=== PATIENT | female | born 1955 | race Caucasian/White ===

== ENCOUNTER → 2021-01-30 | Outpatient (CLI) | payer OTHER ==
[~2021-01-30] MED LIST: MELO7.5T29 PO; MULT-245 PO; PRAM0.255 PO
--- NOTE | 2021-01-30 13:12 | PDOC1 ---
INITIAL PAIN CONSULT DATE OF SERVICE: DOS: DATE: 01/30/21 TIME: 13:05 CHIEF COMPLAINT: Chief Complaint: Low back and bilateral lower extremity pain HISTORY OF PRESENT ILLNESS: 65-year-old female presents history of pain low back bilateral lower extremities 5 months after injury at work she was lifting boxes at her job and had significant pain in the low back and the legs. Patient reports that she is still working but is very difficult for her to do so because of the pain in the low back and the legs patient reports is worse with standing walking changing positions sitting for more than 15 to 20 minutes exacerbates the pain she has had physical therapy as well as doing exercise and is currently doing the exercises both of which were helpful but only minimally patient reports it wakes her from sleep at night least once or twice does not affect her bowel bladder control does affect her ability to walk fairly significantly with ambulation especially with carrying any items when she is walking. Patient reports pain is constant sharp throbbing can be stabbing and shooting in the low back and into the bilateral lower extremities mostly the posterior gluteus posterior thighs. Patient rates her disability rating 0-10 10 being the worst 8 with possibilities recreation social activity occupation 7 with self-care and 8 with life support activities. Patient have MRI scan lumbar spine dated January 04, 2021 showing multilevel degenerative changes and bulges largest of which is L2-3 and L5-S1 with diffuse bulging osteophyte complex at L5-S1 and degenerative changes resulting in moderate left foraminal narrowing and mild to moderate right foraminal narrowing. Patient reports no loss of motor function but significant fatigability of both lower extremities with standing and walking especially. Patient has been taking [id number] analgesics Motrin as well as Tylenol with minimal decrease also taking meloxicam with minimal decrease. PAST MEDICAL HISTORY: PMH: Arthritis, hearing loss, restless leg syndrome PREVIOUS SURGERIES: Past Surgical Hx: Cholecystectomy, total abdominal hysterectomy CURRENT MEDICATIONS: Current Meds: Active Scripts Medications Dose Route/Sig Max Daily Dose Days Date Category Meloxicam 7.5 Mg Tablet 7.5 Mg PO DAILY 01/30/21 Reported Mirapex (Pramipexole Di-Hcl) 0.25 Mg Tablet 0.5 Mg PO DAILY 01/30/21 Reported Multi Vitamin Daily (Multivitamin) 1 Each Tablet 1 Tab PO DAILY 30 01/30/21 Reported ALLERGIES; Allergies: Coded Allergies: Iodinated Contrast Media (Verified Allergy, Severe, Shortness of Air, 01/30/21) rash codeine (Verified Allergy, Intermediate, Unknown, 01/30/21) FAMILY HISTORY: Family Hx: No major medical problems or conditions that she is aware of. 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 REVIEW OF SYSTEMS: ROS: Positive for those items mentioned in history of present illness, all systems are reviewed, otherwise negative ,and are complete full and well-documented on patient's chart. PHYSICAL EXAM: VS: Blood pressure is 146/80 pulse 72 respirations 16 temperature 97.7 F height is 5 feet 8 inches weight is 216 pounds PE: PHYSICAL EXAMINATION: GENERAL: The patient is awake, alert, oriented, appropriate, very pleasant demeanor HEENT: Shows normocephalic, atraumatic. Extraocular movements are intact and symmetrical. Oral cavity: Mucous membranes moist and pink. Dentition is intact. NECK: Shows anterior throat supple without palpable lymphadenopathy noted. Swallow reflex symmetrical. CHEST: Shows normal on inspection. Breath sounds are clear bilaterally, distant but no rales rhonchi wheezes auscultated. HEART: Shows S1, S2 clear. No murmurs auscultated. ABDOMEN: Soft, nontender, nondistended, obese. No palpable organomegaly is noted. No rebound or guarding demonstrated. BACK: Shows spine grossly in the midline. Normal-appearing cervical lordotic curvature. There is mildly increased thoracic kyphosis, some flattening of the lumbar lordotic curvature. Lumbar paraspinous muscles show symmetrical on inspection, on palpation shows some moderate tenderness diffusely throughout the upper, middle and lower distribution of the paraspinous muscles bilaterally and also into the lower thoracic paraspinous musculature, firm and tender, but without specific trigger points, without radiation of pain. The patient has good rotational motion of the lumbar spine, both laterally as well as extension and flexion without significant difficulty. No tenderness over the spinous processes, sacrum or sacroiliac regions. EXTREMITIES: Lower extremities show deep tendon reflexes 2+ in the patellar and tendo calcaneus tendons. Motor exam is 5 on a scale of 5 with right dorsiflexion, extension and 4/5 on the left. Peripheral pulses are 1+ posterior tibial. No peripheral edema is noted bilaterally. Lower extremities are warm and dry to touch, equal in color and appearance. Straight leg raise noted to be negative on the right, left side is positive at approximately 40 degrees decreased with knee flexion. Gaenslen's and Sunny's maneuvers are negative bilaterally as well. The patient is able to stand, stand her toes without significant difficulty or loss of balance walks with a normal-appearing gait not use any assistive devices to ambulate. SKIN: Shows warm and dry, good turgor. No edema. No sores, rashes or bruising throughout. IMPRESSION: Impression: 65-year-old female with history of injury at work September 2020 with resultant pain low back and bilateral lower extremities, in a radicular fashion following L5-S1 dermatomal distribution. MRI scan lumbar spine as noted Arthritis Restless leg syndrome Plan: Options were discussed with patient including continued physical therapies medical management and interventional techniques. This patient has done physical therapies and is currently doing oral analgesic therapy she would like to interventional techniques. We discussed a lumbar epidural steroid injections description as well as anatomical models to describe the procedure. Patient will wait for preauthorization with her insurance provider, once obtained we will plan on a translaminar L5-S1 level lumbar epidural steroid injection. The meantime patient continue with stretching strength exercises on her own as well as oral analgesics as currently. ROM MOE MD January 30, 2021 13:12
== END | disposition home or self-care (01) ==
LOC: PNCL 08:16
PROVIDERS: ATTEND Anesthesiology
DX: M54.5 Low back pain (principal); M19.90 Unspecified osteoarthritis, unspecified site; G25.81 Restless legs syndrome; M25.78 Osteophyte, vertebrae; Z90.49 Acquired absence of other specified parts of digestive tract; Z90.710 Acquired absence of both cervix and uterus; Z88.5 Allergy status to narcotic agent; Z91.041 Radiographic dye allergy status; Z79.899 Other long term (current) drug therapy
CPT/HCPCS: 99214; G0463

== ENCOUNTER → 2021-02-13 | Outpatient (CLI) | payer OTHER ==
[~2021-02-13] MED LIST changes: +LINZESS145 MCG PO; +methylPREDNISolone ACETATE 40 MG/ML VIAL. ONE; +methylPREDNISolone ACETATE 80 MG/ML VIAL. ONE
--- NOTE | 2021-02-13 08:42 | PDOC ---
Progress Note - Pain Clinic Date of Service: DOS: DATE: 02/13/21 TIME: 08:40 Diagnosis: Dx: Lumbar radiculopathy with lumbar degenerative disc disease History or Present Illness: HPI: 65-year-old female returns follow-up status post initial evaluation and preauthorization for lumbar epidural steroid injection. Patient reports she still has significant pain low back bilateral lower extremities posterior gluteus posterior thigh posterior calf right greater than left some weakness as well with walking in both legs patient reports that sharp and tight burning cramping stabbing sometimes throbbing in the low back shooting the bilateral lower extremities patient reports her pain is a 9 on scale 10 at all times worst least and average over the past week and a 9 today patient reports no new motor or sensory deficits no new bowel or bladder incontinence still significant pain again worse with walking standing better with sitting or laying down. Physical Exam: VS: Blood pressure is 132/73 pulse 74 respirations 16 temperature 98.0 F weight is 211 pounds PE: PHYSICAL EXAMINATION: GENERAL: The patient is awake, alert, oriented, appropriate, very pleasant demeanor HEENT: Shows normocephalic, atraumatic. Extraocular movements are intact and symmetrical. Oral cavity: Mucous membranes moist and pink. Dentition is intact. NECK: Shows anterior throat supple without palpable lymphadenopathy noted. Swallow reflex symmetrical. CHEST: Shows normal on inspection. Breath sounds are clear bilaterally, no rales or rhonchi. HEART: Shows S1, S2 clear. No murmurs auscultated. ABDOMEN: Soft, nontender, nondistended, obese. No palpable organomegaly is noted. BACK: Shows spine grossly in the midline. Normal-appearing cervical lordotic curvature. There is slightly increased thoracic kyphosis, some minor flattening of the lumbar lordotic curvature. Lumbar paraspinous muscles show symmetrical on inspection, on palpation shows some moderate tenderness diffusely throughout the upper, middle and lower distribution of the paraspinous muscles but without specific trigger points, without radiation of pain. The patient has good rotational motion of the lumbar spine, both laterally as well as extension and flexion without significant difficulty. EXTREMITIES: Lower extremities show deep tendon reflexes 2+ in the patellar and tendo calcaneus tendons. Motor exam is 5 on a scale of 5 with right dorsiflexion, extension, quadriceps and hamstring flexion and 4/5 on the left. Peripheral pulses are 1+ posterior tibial. No peripheral edema is noted bilaterally. Lower extremities are warm and dry to touch, equal in color and appearance. SKIN: Shows warm and dry, good turgor. No edema. No sores, rashes or bruising throughout. Procedure: Procedure: Options were discussed with the patient. Patient chart was reviewed as her current medication regimen updated current review of systems updated today as well. We will proceed with a first in the series lumbar epidural steroid injec tion today with fluoroscopic guidance. Risks were discussed including but not limited to: Bleeding, infection, possibility of epidural hematoma and subsequent neurological compromise, dural puncture, headaches, spinal cord and/or nerve damage, side effects of steroid medication, and poor results regarding pain control. Patient understands and wished to proceed. Patient will return to the clinic in approximately 2 weeks for follow-up, was counseled as to return appointment activity level and side effects to be aware of. Medication Injected: Med Injected: Procedure is lumbar epidural steroid injection under local anesthetic using sterile prep and drape at the L5-S1 level using C-arm fluoroscopic guidance in both AP and lateral views medications injected is 120 mg Depo-Medrol +10mL preservative-free normal saline and 2 mL contrast- condition at discharge is stable patient tolerated procedure well had no complications. Condition at Discharge: Condition at Discharge: Condition at discharge is stable, patient tolerated the procedure well and had no complications. ROM MOE MD February 13, 2021 08:42
--- NOTE | 2021-02-13 08:43 | PDOC4 ---
PROCEDURE Procedure Patient was consented for lumbar epidural steroid injection. Risks were dis cussed including but not limited to: Bleeding, infection, possibility of epidural hematoma and subsequent neurological compromise, dural puncture, headaches, spinal cord and/or nerve damage, side effects of steroid medication, and poor results regarding pain control. Patient understands and wished to proceed. Procedure is lumbar epidural steroid injection under local anesthetic using sterile prep and drape at the L5-S1 level using C-arm fluoroscopic guidance in both AP and lateral views medications injected is 120 mg Depo-Medrol +10mL preservative-free normal saline and 2 mL contrast- condition at discharge is stable patient tolerated procedure well had no complications. ROM MOE MD February 13, 2021 08:43
== END | disposition home or self-care (01) ==
LOC: PNCL 07:55
PROVIDERS: ATTEND Anesthesiology
DX: M51.16 Intervertebral disc disorders with radiculopathy, lumbar region (principal); Z79.899 Other long term (current) drug therapy; Z88.5 Allergy status to narcotic agent; Z91.041 Radiographic dye allergy status
CPT/HCPCS: 62323; J1030; J1040

== ENCOUNTER → 2021-02-27 | Outpatient (CLI) | payer OTHER ==
[~2021-02-27] MED LIST changes: +MELO15TA23 PO; -methylPREDNISolone ACETATE 40 MG/ML VIAL. ONE; -methylPREDNISolone ACETATE 80 MG/ML VIAL. ONE
--- NOTE | 2021-02-27 08:25 | PDOC ---
Progress Note - Pain Clinic Date of Service: DOS: DATE: 02/27/21 TIME: 08:20 Diagnosis: Dx: Lumbar radiculopathy with lumbar degenerative disc disease History or Present Illness: HPI: 65-year-old female returns for follow-up status post lumbar epidural steroid action x1. Patient reports about 60% improvement initially in the low back and bilateral lower extremity pain. Patient reports the pain began to return and then after about 2 weeks and is becoming close to baseline but not quite to that level yet. Patient reports pain across the low back bilaterally radiating to bilateral lower extremities in the posterior gluteus posterior thigh posterior calf and into the feet occasionally with extended walking standing changing positions. Patient reports is a 9 on scale 10 is worse over the past week 7 on average 7 at its least and is a 7 today patient reports that sharp and tight stabbing in the low back radiating shooting into the lower extremities. Patient reports difficulty with sleeping although initially she was doing much better for the first 2 weeks with distance walking doing household activities work activities sitting for longer periods at work with greater ease and comfort but now the pain is returning especially with walking and standing and weightbearing. Patient reports no new motor or sensory deficits no new bowel or bladder incontinence. Patient describes the pain in the low back and it is following an L5-S1 dermatomal distribution bilaterally as it was previously. Physical Exam: VS: Blood pressure is 120/74 pulse 78 respirations 16 temperature 97.9 F weight is 214 pounds PE: PHYSICAL EXAMINATION: GENERAL: The patient is awake, alert, oriented, appropriate, very pleasant in demeanor HEENT: Shows normocephalic, atraumatic. Extraocular movements are intact and symmetrical. NECK: Shows anterior throat supple without palpable lymphadenopathy noted. Swallow reflex symmetrical. CHEST: Shows normal on inspection. Breath sounds are clear bilaterally. For HEART: Shows S1, S2 clear. No murmurs auscultated. ABDOMEN: Soft, nontender, nondistended. No palpable organomegaly is noted. BACK: Shows spine grossly in the midline. Normal-appearing cervical lordotic curvature. There is slightly increased thoracic kyphosis, some minor flattening of the lumbar lordotic curvature. Lumbar paraspinous muscles show symmetrical on inspection, on palpation shows some moderate tenderness diffusely throughout the upper, middle and lower distribution of the paraspinous muscles, but without specific trigger points, without radiation of pain. The patient has good rotational motion of the lumbar spine, both laterally as well as extension and flexion without significant difficulty. EXTREMITIES: Lower extremities show deep tendon reflexes 2 in the patellar and tendo calcaneus tendons. Motor exam is 5 on a scale of 5 with right dorsiflexion, extension, quadriceps and hamstring flexion and 4/5 on the left. Peripheral pulses are 1+ posterior tibial. No peripheral edema is noted bilat erally. Lower extremities are warm and dry. Patient continues to have a positive straight leg raise on the left at approximate 45 degrees decreased with knee flexion, right side is negative. SKIN: Shows warm and dry, good turgor. No edema. No sores, rashes or bruising throughout. Procedure: Procedure: Options were discussed with the patient. Patient's old chart was reviewed as her current medication regimen updated current review of systems updated today as well. We will preauthorize patient for a second lumbar epidural steroid injection she did very well after the first 1 about 60% improvement with pain returning now in a radicular fashion following an L5-S1 dermatomal distribution bilaterally left greater than right again with positive straight leg raise on the left and significant pain and fatigue weakness with standing and ambulating more on the left than the right but present bilaterally. Once authorization is obtained we will plan on a translaminar approach L5-S1 lumbar epidural steroid injection. Medication Injected: Med Injected: None Condition at Discharge: Condition at Discharge: Condition at discharge stable. ROM MOE MD Feb 27, 2021 08:25
== END | disposition home or self-care (01) ==
LOC: PNCL 07:59
PROVIDERS: ATTEND Anesthesiology
DX: M51.16 Intervertebral disc disorders with radiculopathy, lumbar region (principal); Z79.899 Other long term (current) drug therapy; Z91.041 Radiographic dye allergy status; Z88.5 Allergy status to narcotic agent
CPT/HCPCS: 99212; G0463

== ENCOUNTER → 2021-03-13 | Outpatient (CLI) | payer OTHER, MEDICARE ==
[~2021-03-13] MED LIST changes: +IOHEXOL 180 MG/ML 10 ML VIAL. ONE; +methylPREDNISolone ACETATE 40 MG/ML VIAL. ONE; +methylPREDNISolone ACETATE 80 MG/ML VIAL. ONE
--- NOTE | 2021-03-13 08:52 | PDOC ---
Progress Note - Pain Clinic Date of Service: DOS: DATE: 03/13/21 TIME: 08:49 Diagnosis: Dx: Lumbar radiculopathy with lumbar degenerative disc disease History or Present Illness: HPI: 65-year-old female returns for follow-up status post lumbar epidural steroid injection x1. Patient did very well for the first injection about 60% improvement in her pain was returning in the low back and bilateral lower extremities posterior gluteus posterior thighs posterior calves patient is waiting for preauthorization with her insurance provider is obtained that now would like to proceed with second injection today. Patient reports he was doing much better distance walking doing household activities travel with greater ease and comfort sleeping better at night is beginning with sleep about once every 3 hours or so patient rates her pain a 9 on scale 10 is worst average and 8 at its least is a 9 today patient describes sharp and shooting across the low back burning and stabbing in the back shooting into the lower extremities on and off in intensity. Patient reports no new motor or sensory deficits no new bowel or bladder incontinence. Physical Exam: VS: Blood pressure is 138/85 pulse 72 respirations 16 temperature 98.0 F weight is 213 pounds PE: PHYSICAL EXAMINATION: GENERAL: The patient is awake, alert, oriented, appropriate, very pleasant demeanor HEENT: Shows normocephalic, atraumatic. Extraocular movements are intact and symmetrical. Oral cavity: Mucous membranes moist and pink. Dentition is intact. NECK: Shows anterior throat supple without palpable lymphadenopathy noted. Swallow reflex symmetrical. CHEST: Shows normal on inspection. Breath sounds are clear bilaterally. HEART: Shows S1, S2 clear. No murmurs auscultated. ABDOMEN: Soft, nontender, nondistended, obese. BACK: Shows spine grossly in the midline. Normal-appearing cervical lordotic curvature. There is slightly increased thoracic kyphosis, some minor flattening of the lumbar lordotic curvature. Lumbar paraspinous muscles show symmetrical on inspection, on palpation shows some moderate tenderness diffusely throughout the upper, middle and lower distribution of the paraspinous muscles, but without specific trigger points, without radiation of pain. The patient has good rotational motion of the lumbar spine, both laterally as well as extension and flexion without significant difficulty. EXTREMITIES: Lower extremities show deep tendon reflexes 2+ in the patellar and tendo calcaneus tendons. Motor exam is 5 on a scale of 5 with right dorsiflexion, extension, quadriceps and hamstring flexion and 4/5 on the left. Peripheral pulses are 1+ posterior tibial. No peripheral edema is noted bilaterally. Lower extremities are warm and dry. SKIN: Shows warm and dry, good turgor. No edema. No sores, rashes or bruising throughout. Procedure: Procedure: Options were discussed with the patient. Patient's old chart reviews her current medication regimen updated current review of systems updated today as well. We will proceed with a second in the series lumbar epidural steroid injection today with fluoroscopic guidance. Risks were discussed including but not limited to: Bleeding, infection, possibility of epidural hematoma and subsequent neurological compromise, dural puncture, headaches, spinal cord and/or nerve damage, side effects of steroid medication, and poor results regarding pain control. Patient understands and wished to proceed. Patient will return to the clinic in approximate 2 weeks for follow-up, was counseled as to return appointment activity level and side effects to be aware of. Medication Injected: Med Injected: Procedure is lumbar epidural steroid injection under local anesthetic using sterile prep and drape at the L5-S1 level using C-arm fluoroscopic guidance in both AP and lateral views medications injected is 120 mg Depo-Medrol +10mL preservative-free normal saline and 2 mL contrast- condition at discharge is stable patient tolerated procedure well had no complications. Condition at Discharge: Condition at Discharge: Condition at discharge is stable, patient already the procedure well and had no complications. ROM MOE MD Mar 13, 2021 08:51
--- NOTE | 2021-03-13 08:52 | PDOC4 ---
PROCEDURE Procedure Patient was consented for lumbar epidural steroid injection. Risks were dis cussed including but not limited to: Bleeding, infection, possibility of epidural hematoma and subsequent neurological compromise, dural puncture, headaches, spinal cord and/or nerve damage, side effects of steroid medication, and poor results regarding pain control. Patient understands and wished to proceed. Procedure is lumbar epidural steroid injection under local anesthetic using sterile prep and drape at the L5-S1 level using C-arm fluoroscopic guidance in both AP and lateral views medications injected is 120 mg Depo-Medrol +10mL preservative-free normal saline and 2 mL contrast- condition at discharge is stable patient tolerated procedure well had no complications. ROM MOE MD Mar 13, 2021 08:52
== END | disposition home or self-care (01) ==
LOC: PNCL 08:10
PROVIDERS: ATTEND Anesthesiology
DX: M51.16 Intervertebral disc disorders with radiculopathy, lumbar region (principal); Z79.899 Other long term (current) drug therapy; Z91.041 Radiographic dye allergy status; Z88.5 Allergy status to narcotic agent
CPT/HCPCS: 62323; J1030; J1040; Q9965

== ENCOUNTER → 2021-04-03 | Outpatient (CLI) | payer OTHER, MEDICARE ==
[~2021-04-03] MED LIST changes: -IOHEXOL 180 MG/ML 10 ML VIAL. ONE; -methylPREDNISolone ACETATE 40 MG/ML VIAL. ONE; -methylPREDNISolone ACETATE 80 MG/ML VIAL. ONE
--- NOTE | 2021-04-03 08:28 | PDOC ---
Progress Note - Pain Clinic Date of Service: DOS: DATE: 04/03/21 TIME: 08:25 Diagnosis: Dx: Lumbar radiculopathy with lumbar degenerative disc disease History or Present Illness: HPI: 65-year-old female returns for follow-up status post lumbar epidural steroid injection x2. Patient reports about 75% improvement after the injection now about 50% overall but still significantly better in the low back and the bilateral lower extremities patient reports pain still when standing for prolonged periods walking for prolonged periods bending stooping radiating across the low back into the bilateral lower extremities posterior gluteus posterior thigh posterior calves and also feels "tight" in the legs with activity. Patient reports when she keeps moving the pain does seem to decrease but is always present patient rates it as a 6 on a scale of 10 at all times worst average and least and is a 6 today. Patient is been taking meloxicam which has not been very effective recently and we discussed this and will change to new medication of naproxen 500 mg twice daily patient was given instructions well side effects be aware of. Patient scribes pain is sharp and tight in the back stabbing and cramping shooting in the lower extremities. Patient reports no new motor or sensory deficits no bowel or bladder incontinence or other complaints. Patient reports is better with laying down generally does not awaken her from sleep patient reports initially she was in much better walking doing household activities work activities travel with greater ease and comfort now pain returning as noted. Physical Exam: VS: Blood pressure is 1 5486 pulse 70 respirations 18 temperature 97.6 F height is 5 feet 8 inches weight is 218 pounds PE: PHYSICAL EXAMINATION: GENERAL: The patient is awake, alert, oriented, appropriate, very pleasant in demeanor HEENT: Shows normocephalic, atraumatic. Extraocular movements are intact and symmetrical. Oral cavity: Mucous membranes moist and pink. NECK: Shows anterior throat supple without palpable lymphadenopathy noted. Swallow reflex symmetrical. CHEST: Shows normal on inspection. Breath sounds are clear bilaterally, distant but no rales or rhonchi. HEART: Shows S1, S2 clear. No murmurs auscultated. ABDOMEN: Soft, nontender, nondistended, obese. BACK: Shows spine grossly in the midline. Normal-appearing cervical lordotic curvature. There is slightly increased thoracic kyphosis, some minor flattening of the lumbar lordotic curvature. Lumbar paraspinous muscles show symmetrical on inspection, on palpation shows some moderate tenderness diffusely throughout the upper, middle and lower distribution of the paraspinous muscles without specific trigger points, without radiation of pain. The patient has good rotational motion of the lumbar spine, both laterally as well as extension and flexion without significant difficulty. No tenderness over the spinous processes, sacrum or sacroiliac regions. EXTREMITIES: Lower extremities show deep tendon reflexes 2+ in the patellar and tendo calcaneus tendons. Motor exam is 5 on a scale of 5 with right dorsiflexion, extension, quadriceps and hamstring flexion and 4/5 on the left. Peripheral pulses are 1+ posterior tibial. No peripheral edema is noted bilaterally. Lower extremities are warm and dry. SKIN: Shows warm and dry, good turgor. No edema. No sores, rashes or bruising throughout. Procedure: Procedure: Options discussed with the patient. Patient's old chart was reviewed as her current medication regimen updated current review of systems updated today as well. We will preauthorize patient for a third lumbar epidural steroid injections doing very well with radicular pain returning however in the L5-S1 dermatomal distribution bilaterally. Again we will change meloxicam to a new medication of naproxen 500 mg twice daily. Patient was given instructions well side effects to be aware of with the medication. Once approved with her insurance authorization, we will plan on translaminar approach L5-S1 lumbar epidural steroid injection at that time. Medication Injected: Med Injected: None Condition at Discharge: Condition at Discharge: Condition at discharge is stable. ROM MOE MD Apr 03, 2021 08:28
== END | disposition home or self-care (01) ==
LOC: PNCL 07:53
PROVIDERS: ATTEND Anesthesiology
DX: M51.16 Intervertebral disc disorders with radiculopathy, lumbar region (principal); Z79.899 Other long term (current) drug therapy; Z91.041 Radiographic dye allergy status; Z88.5 Allergy status to narcotic agent
CPT/HCPCS: 99212; G0463

== ENCOUNTER → 2021-05-01 | Outpatient (CLI) | payer OTHER, MEDICARE ==
[~2021-05-01] MED LIST changes: +IOHEXOL 180 MG/ML 10 ML VIAL. ONE; +methylPREDNISolone ACETATE 40 MG/ML VIAL. ONE; +methylPREDNISolone ACETATE 80 MG/ML VIAL. ONE
--- NOTE | 2021-05-01 08:40 | PDOC ---
Progress Note - Pain Clinic Date of Service: DOS: DATE: 05/01/21 TIME: 08:37 Diagnosis: Dx: Lumbar radiculopathy with lumbar degenerative disc disease History or Present Illness: HPI: 65-year-old female returns for follow-up status post lumbar epidural steroid injection x2. Most recently March 12, 2021. Patient about 75% better after the injection reports pain now returning in the low back and into the bilateral lower extremities patient reports a 10 on scale 10 is worst average and least over the past week and is a 10 today patient ports across the low back bilateral lower extremities described as sharp and shooting stabbing radiating mostly the posterior gluteus posterior thigh lateral thigh anterior thigh and posterior lower legs patient reports she had her grandchildren with her the last 2 weeks and there is a lot of increased activity that she was noticing the pain was much more significant patient reports she has had some balance issues as well which is a new finding when she is off balance and has been stumbling and even fell down a small hill while they were fishing with her grandchildren last week. Patient reports other than that no new motor or sensory deficits patient reports no bowel or bladder incontinence at this time. Physical Exam: VS: Blood pressure is 140/96 pulse 75 respirations 18 temperature 98.1 F height is 5 feet 8 inches weight is 214 pounds PE: PHYSICAL EXAMINATION: GENERAL: The patient is awake, alert, oriented, appropriate, very pleasant in d emeanor. HEENT: Shows normocephalic, atraumatic. Extraocular movements are intact and symmetrical. Oral cavity: Mucous membranes moist and pink. Dentition is intact. NECK: Shows anterior throat supple without palpable lymphadenopathy noted. Swallow reflex symmetrical. CHEST: Shows normal on inspection. Breath sounds are clear bilaterally, no rales rhonchi or wheezes auscultated. HEART: Shows S1, S2 clear. No murmurs auscultated. ABDOMEN: Soft, nontender, nondistended, obese. No palpable organomegaly is noted. BACK: Shows spine grossly in the midline. Normal-appearing cervical lordotic curvature. There is increased thoracic kyphosis, some flattening of the lumbar lordotic curvature. Lumbar paraspinous muscles show symmetrical on inspection, on palpation shows some moderate tenderness diffusely throughout the upper, middle and lower distribution of the paraspinous muscles without specific trigger points, without radiation of pain. The patient has good rotational motion of the lumbar spine, both laterally as well as extension and flexion without significant difficulty. EXTREMITIES: Lower extremities show deep tendon reflexes 2+ in the patellar and tendo calcaneus tendons. Motor exam is 5 on a scale of 5 with right dorsiflexion, extension, quadriceps and hamstring flexion and 4/5 on the left. Peripheral pulses are 1 posterior tibial. No peripheral edema is noted bilaterally. Lower extremities are warm and dry to touch, equal in color and appearance. SKIN: Shows warm and dry, good turgor. No edema. No sores, rashes or bruising throughout. Procedure: Procedure: Options discussed with the patient. Patient chart reviews her current medication regimen updated current review of systems updated today as well. We will proceed with a third in the series today lumbar epidural steroid injection with fluoroscopic guidance. Risks were discussed including but not limited to: Bleeding, infection, possibility of epidural hematoma and subsequent neurological compromise, dural puncture, headaches, spinal cord and/or nerve damage, side effects of steroid medication, and poor results regarding pain control. Patient understands and wished to proceed. Patient will return to the clinic in approximately 2 weeks for follow-up, was counseled as return appointment active level and side effects to be aware of. Medication Injected: Med Injected: Procedure is lumbar epidural steroid injection under local anesthetic using sterile prep and drape at the L5-S1 level using C-arm fluoroscopic guidance in both AP and lateral views medications injected is 120 mg Depo-Medrol +10mL preservative-free normal saline and 2 mL contrast- condition at discharge is stable patient tolerated procedure well had no complications. Condition at Discharge: Condition at Discharge: Condition at discharge stable, patient already the procedure well and had no complications. ROM MOE MD May 01, 2021 08:40
--- NOTE | 2021-05-01 08:41 | PDOC4 ---
Procedure Note: ICD 10 Code: ICD 10 Code: M54.16 M51.36 Procedure Note: Patient was consented for lumbar epidural steroid injection with fluoroscopic guidance. Risks were discussed including but not limited to: Bleeding, infection, possibility of epidural hematoma and subsequent neurological compromise, dural puncture, headaches, spinal cord and/or nerve damage, side effects of steroid medication, and poor results regarding pain control. Patient understands and wished to proceed. Procedure is lumbar epidural steroid injection under local anesthetic using sterile prep and drape at the L5 S1 level using C-arm fluoroscopic guidance in both AP and lateral views medications injected is 120 mg Depo-Medrol +10mL preservative-free normal saline and 2 mL contrast- condition at discharge is stable patient tolerated procedure well had no complications. ROM MOE MD May 01, 2021 08:41
== END | disposition home or self-care (01) ==
LOC: PNCL 08:03
PROVIDERS: ATTEND Anesthesiology
DX: M51.16 Intervertebral disc disorders with radiculopathy, lumbar region (principal); Z79.899 Other long term (current) drug therapy; Z88.5 Allergy status to narcotic agent; Z91.041 Radiographic dye allergy status
CPT/HCPCS: 62323; J1030; J1040; Q9965